=== PATIENT | male | born 1925 | race Caucasian/White ===

== ENCOUNTER 2016-07-11 09:29 | Emergency (ER) | payer OTHER ==
[2016-07-11] MEDS ORDERED: ONDANSETRON 4 MG VIAL ONE (10:49)
== END 2016-07-11 13:27 | disposition home or self-care (01) ==
LOC: ER 09:29
DX: A08.4 Viral intestinal infection, unspecified (principal)
CPT/HCPCS: 36415 ×2; 80053 ×2; 81003 ×2; 82947 ×2; 83690 ×2; 85025 ×2; 96374 ×2; 99283; J2405